=== PATIENT | female | born 1965 | race African-American/Black ===

== ENCOUNTER 2016-07-22 17:18 | Emergency (ER) | payer OTHER ==
[~2016-07-22] VITALS: Ht 180.3 cm; Wt 110.0 kg
[~2016-07-22 17:18] MED LIST: 1-ME1LIQ PO; AMOX500T PO; DIFL150T PO; GABA300C3 PO; GLUCTAB PO; GLYB1TAB51 PO; ONETAB3; VITA250T5
[2016-07-22 17:20] VITALS: BP 178/84; PULSE 90; RESP 20; TEMP 98.1; O2SAT 97
--- NOTE | 2016-07-22 18:25 | PD ---
HPI Chief Complaint: Fall Time Seen by Provider: 18:25 Travel History International Travel<30 days: No Contact w/Intl Traveler<30days: No Traveled to known affect area: No History of Present Illness HPI 50-year-old female with PMH of HTN, HLD and DM presents to the ED for evaluation approximately 14 hours after a slip and fall. Patient states that she tripped over her pajama pants, landed on the carpeted floor, striking her head in the process. She endorses brief LOC. She states that she has been experiencing tingling of the right arm, including the fingers, since the fall. Also complains of dull headache with occasional blurred vision and dizziness. She denies joint pain, limitations to ROM or loss of strength of the extremities. She treated at home with 800mg ibuprofen with no improvement of symptoms. PFSH Past Medical History Asthma: No Anxiety: Yes Depression: No Heart Rhythm Problems: No Cancer: No Cardiovascular Problems: Yes (HTN) High Cholesterol: Yes Chemotherapy: No Chest Pain: Yes Congestive Heart Failure: No COPD: No Diabetes: Yes Patient Takes Glucophage: Yes Diminished Hearing: No Endocrine: Yes Hepatitis: No Hiatal Hernia: No Hypertension: Yes Immune Disorder: No Kidney Stones: No Medical other: Yes (SCIATIC NERVE) Musculoskeletal: No Neurologic: No Psychiatric: Yes Reproductive: No Respiratory: No Immunizations Current: No Radiation Therapy: No Renal Failure: No Sickle Cell Disease: No Sleep Apnea: Yes Thyroid Disease: No Tetanus Vaccination: Unknown Influenza Vaccination: No ?: Not Menopausal: Yes : 2 Para: 2 Tubal Ligation: Yes Past Surgical History Abdominal Surgery: Yes (CHOLECYSTETOMY 1992) Cardiac Surgery: No Cholecystectomy: Yes (1992) Ear Surgery: No Endocrine Surgery: No Eye Surgery: No Genitourinary Surgery: No Gynecologic Surgery: Yes (TUBAL LIGATION AND HYSTERECTOMY ) Hysterectomy: Yes (10/06) Oral Surgery: No Pacemaker: No Thoracic Surgery: No Other Surgery: Yes Social History Alcohol Use: Yes (OCC) Tobacco Use: No Substance Use: No Allergies-Medications (Allergen,Severity, Reaction): Coded Allergies: Dilaudid (Verified Allergy, Severe, ITCHING, 07/22/16) Lisinopril (Verified Allergy, Severe, 07/22/16) Reported Meds & Prescriptions Reported Meds & Active Scripts Active Flexeril (Cyclobenzaprine HCl) 10 Mg Tab 10 Mg PO TID Ibuprofen 800 Mg Tab 800 Mg PO TID Glucophage XR 24 HR (Metformin HCl) 500 Mg Tab 1,000 Mg PO BID Diflucan 150 mg (Fluconazole) 150 Mg Tab 150 Mg PO ONCE Amoxil (Amoxicillin) 500 Mg Tab 500 Mg PO Q8H Gabapentin 300 Mg Cap 300 Mg PO TID 1-Methyl 2-Pyrrolidinone (1-Methyl 2-Pyrrolidone (Bulk)) 10 Mg Tab 10 Mg PO DAILY Glyburide 5 Mg Tab 10 Mg PO BID Reported One Daily Womewomen1 Womens Tab Vitamin B-12 (Cyanocobalamin) 250 Mcg Tab Review of Systems Except as stated in HPI: all other systems reviewed are Neg Physical Exam Narrative GENERAL: Well-nourished, well-developed obese black female in no acute distress. Wearing a c-collar. SKIN: Warm and dry. Thorough evaluation reveals no edema, ecchymosis, abrasion , or laceration of the skin. HEAD: Normocephalic. Atraumatic. No raccoon eyes or no sign. No tenderness to palpation of the skull. No bony step-offs. No malocclusion of the teeth. EYES: No scleral icterus. No injection or drainage. PERRLA. EOMI. ENT: Pearly antonio tympanic membrane is bilaterally. Nasal mucosa is moist. Oropharynx without erythema, edema or exudate. NECK: Supple, trachea midline. No JVD or lymphadenopathy. ++ midline tenderness to palpation. C collar remains in place pending CT. CARDIOVASCULAR: Regular rate and rhythm without murmurs, gallops, or rubs. 2+ DP and radial pulses bilaterally. RESPIRATORY: Breath sounds clear and equal bilaterally. No accessory muscle use. GASTROINTESTINAL: Abdomen soft, non-tender, nondistended. + Bowel sounds MUSCULOSKELETAL: No cyanosis, or edema. No tenderness to palpation or limitations to range of motion of the joints of the upper and lower extremities bilaterally. NEUROLOGICAL: Awake and alert. Cranial nerves II through XII intact. Motor and sensory grossly within normal limits. 5/5 muscle strength in all muscle groups. Normal speech. BACK: Nontender without obvious deformity. No CVA tenderness. No midline tenderness. tenderness. Data Data Last Documented VS Vital Signs Date Time Temp Pulse Resp B/P Pulse Ox O2 Delivery O2 Flow Rate FiO2 07/22/16 20:38 18 07/22/16 17:50 Room Air 07/22/16 17:20 98.1 90 178/[address] Brain W/O Iv Contrast(Rout) (07/22/16 18:33) Ct Cerv Spine W/O Contrast (07/22/16 18:33) Oxycodone-Acetamin 7.5-325 Mg (Percocet (07/22/16 18:45) MDM Medical Decision Making Medical Screen Exam Complete: Yes Emergency Medical Condition: Yes Differential Diagnosis musculoskeletal pain versus cephalgia versus parasthesia versus radiculopathy versus cervical spinal injury versus skull fracture versus ICH versus other Narrative Course 50-year-old female with PMH of HTN, HLD and DM presents to the ED for evaluation ~14 hours after a slip and fall. Patient states that she tripped over her pajama pants, landed on the carpeted floor, striking her head in the process. She endorses brief LOC, has been experiencing tingling of the right arm, including the fingers, since the fall. Also complains of dull headache with occasional blurred vision and dizziness. She denies joint pain, limitations to ROM or loss of strength of the extremities. Vitals reviewed. Physical exam reveals an obese black female in a C-collar in no acute distress, smiling and laughing with her visitors, on the cell phone, sitting upright in bed with legs splayed over the side. No tenderness to palpation of skull or facial bones. No focal neural deficit. Tender to palpation of the midline cervical spine. C- collar remained in place pending CT. No tenderness to palpation, loss of strength or limitations to range of motion of the joints of the extremities bilaterally. Sensation intact to light touch distally. Patient was administered 7.[address] of the head: Negative for fracture, no evidence of hemorrhage per radiology read. CT of the cervical spine: Degenerative changes at C4-5 and C6-7 with disc bulging and mild stenosis. I discussed the patient, work up and plan with Dr. Zhong who agrees. Recheck of the patient reveals improvement of pain and headache symptoms. C-collar removed. I discussed the results of the CTs with the patient. Provided her with a copy of the cervical spinal CT, instructed her to follow up with neurologist or neurosurgery. She was provided a short course of anti- inflammatory medications and Flexeril. She is instructed to rest, hydrate, return to normal, gentle activities as tolerated, take medications as prescribed , follow-up early next week. She was provided an excuse for work until 07/26. She indicated understanding of the instructions. She is amenable to plan of care. She is stable and discharged home. Diagnosis Primary Impression: Fall Qualified Code: W19.XXXA - Fall, initial encounter Additional Impressions: Neck pain Arm paresthesia, right Referrals: Yayo Engel MD,Shawn Mims MD Patient Instructions: General Instructions, Musculoskeletal Pain (ED), Neck Pain (ED) Departure Forms: Tests/Procedures, Work Release Enter return to work date: Jul 26, 2016 Additional Instructions: Rest, hydrate. Resume normal , gentle activities as tolerated. No strenuous physical activities or heavy lifting for the next few days You have been involved in an fall and need rest, ibuprofen, fluids. Take 800 mg ibuprofen as needed as prescribed for headache and body aches. Flexeril up to 3 times a day as needed for muscle spasm. Do not drive while taking Flexeril. Applying ice or heat to areas with sore muscles may help to improve your pain. Do not apply ice/ heat for longer than 20 m/h. Follow-up with the neurologist/neurosurgeon this week for further evaluation of the CT abnormalities. Return to the ED for any urgent or emergent medical condition. Med/Other Pt SpecificInfo: Prescription(s) given Scripts Cyclobenzaprine (Flexeril)10 Mg Tab10 Mg PO TID #15 TAB Ref 0 Prov:Lizbeth Zhong MD 07/22/16 Ibuprofen 800 Mg [id number] Mg PO TID #15 TAB Ref 0 Prov:Lizbeth Zhong MD 07/22/16 Disposition: DISCHARGE HOME Condition: Stable Rhonda Jefferson Jul 22, 2016 18:25
[2016-07-22] MEDS ORDERED: oxyCODONE/ACETAMINOPHEN 7.5 MG/325 MG TAB PO ONE (18:45)
--- NOTE | 2016-07-22 20:31 | RADRPT ---
EXAM DATE/TIME: 07/22/2016 19:35 [facility] COMPARISON: No previous studies available for comparison. INDICATIONS : Trauma, fall. RADIATION DOSE: 50.03 CTDIvol (mGy) MEDICAL HISTORY : Hypertension. Diabetes mellitus type 2. SURGICAL HISTORY : None. ENCOUNTER: Initial ACUITY: 1 day PAIN SCALE: 4/10 LOCATION: cranial TECHNIQUE: Multiple contiguous axial images were obtained of the head. Using automated exposure control and adjustment of the mA and/or kV according to patient size, radiation dose was kept as low as reasonably achievable to obtain optimal diagnostic quality images. FINDINGS: CEREBRUM: The ventricles are normal for age. No evidence of midline shift, mass lesion, hemorrha ge or acute infarction. No extra-axial fluid collections are seen. POSTERIOR FOSSA: The cerebellum and brainstem are intact. The 4th ventricle is midline. The cer ebellopontine angle is unremarkable. EXTRACRANIAL: The visualized portion of the orbits is intact. SKULL: The calvaria is intact. No evidence of skull fracture. CONCLUSION: Negative for fracture. Camron Boyd MD FACR on July 22, 2016 at 20:29 Board Certified Radiologist. This report was verified electronically.
--- NOTE | 2016-07-22 20:37 | RADRPT ---
EXAM DATE/TIME: 07/22/2016 19:35 [facility] COMPARISON: No previous studies available for comparison. INDICATIONS : Trauma, fall. RADIATION DOSE: 42.99 CTDIvol (mGy) MEDICAL HISTORY : Hypertension. Diabetes mellitus type 2. SURGICAL HISTORY : None. ENCOUNTER: Initial ACUITY: 1 day PAIN SCALE: 4/10 LOCATION: Neck TECHNIQUE: Volumetric scanning of the cervical spine was performed. Multiplanar reconstructions in the sagittal, coronal and oblique axial planes were performed. Using automated exposure control and adjustment o f the mA and/or kV according to patient size, radiation dose was kept as low as reasonably achievable to obtain optimal diagnostic quality images. FINDINGS: Alignment is anatomic in the sagittal and coronal projection. C1 and C2 are intact. C2-C3: The bony spinal canal is normal in size. No evidence of disc bulge or herniation. The neural forami na are bilaterally patent. C3-C4: The bony spinal canal is normal in size. No evidence of disc bulge or herniation. The neural forami na are bilaterally patent. C4-C5: There is central to right-sided disc bulging touching the cord. C5-C6: Moderate uncinate ridging is present. Neural foramina are adequate. C6-C7: Moderate uncinate ridging and disc bulging is present causing a mild degree of spinal stenosis. Neur al foramina are adequate. C7-T1: The bony spinal canal is normal in size. No evidence of disc bulge or herniation. The neural forami na are bilaterally patent. CONCLUSION: Degenerative changes as described above with a fully significant disc bulging. MRI w ould be of benefit. Camron Boyd MD FACR on July 22, 2016 at 20:28 Board Certified Radiologist. This report was verified electronically.
[2016-07-22 20:38] VITALS: RESP 18
[2016-07-22] MEDS ORDERED: IBUP800T23 PO (20:45)
[2016-07-22] MEDS ORDERED: CYCL1TAB29 PO (20:45)
== END 2016-07-22 21:26 | disposition home or self-care (01) ==
LOC: NETRI 17:18
DX: M54.2 Cervicalgia (principal); R51 Headache; R20.2 Paresthesia of skin; I10 Essential (primary) hypertension; E78.5 Hyperlipidemia, unspecified; E11.9 Type 2 diabetes mellitus without complications; Z79.4 Long term (current) use of insulin; W18.09XA Striking against other object with subsequent fall, initial encounter; Y93.89 Activity, other specified; Y92.003 Bedroom of unspecified non-institutional (private) residence as the place of occurrence of the external cause; Y99.8 Other external cause status
CPT/HCPCS: 70450; 72125